=== PATIENT | male | born 1950 | race Caucasian/White ===

== ENCOUNTER 2019-02-16 16:34 | Emergency (ER) | payer MEDICARE, BC ==
[~2019-02-16] VITALS: Ht 170.2 cm; Wt 76.4 kg
[2019-02-16] MEDS ORDERED: LISI-1046 PO (16:45)
[2019-02-16] MEDS ORDERED: ASPI81TA85 PO (16:45)
[2019-02-16] MEDS ORDERED: MULTCAP PO (16:45)
[2019-02-16] MEDS ORDERED: LOPR1TAB6 PO (16:45)
[2019-02-16] MEDS ORDERED: FEXO180T58 PO (16:45)
[2019-02-16] MEDS ORDERED: ATOR40TA75 PO (16:45)
[2019-02-16] MEDS ORDERED: ACET-683 PO (16:45)
[2019-02-16] MEDS ORDERED: NS 1,000 ML IV ONE (19:30)
[2019-02-16 19:35] LABS: BASO # 0.1 10^3/uL (0.0-0.2); BASO % 0.6 % (0.0-1.0); EOS # 0.1 10^3/uL (0.0-0.50); EOS % 1.1 % (0.0-3.0); LYMPH # 1.8 10^3/uL (1.5-4.5); LYMPH % 17.5 % (24.0-44.0); MEAN CORPUSCULAR HEMOGLOBIN 32.4 pg (27.0-33.0); MEAN CORPUSCULAR HGB CONC 34.9 g/dl (32.0-36.5); MEAN CORPUSCULAR VOLUME 92.9 fl (80.0-96.0); MONO # 0.7 10^3/uL (0.0-0.8); MONO % 6.6 % (0.0-5.0); NEUTROPHILS # 7.5 10^3/uL (1.8-7.7); NEUTROPHILS % 73.7 % (36.0-66.0); PLATELET COUNT, AUTOMATED 120 10^3/uL (150-450); RED BLOOD COUNT 4.63 10^6/uL (4.30-6.10); WHITE BLOOD COUNT 10.1 10^3/uL (4.0-10.0)
[2019-02-16 19:52] LABS: BLOOD UREA NITROGEN 20 MG/DL (7-18); CALCIUM LEVEL 9.2 MG/DL (8.8-10.2); CARBON DIOXIDE LEVEL 29 MEQ/L (21-32); CHLORIDE LEVEL 106 MEQ/L (98-107); CK-MB VALUE MASS 1.9 NG/ML (<3.6); CPK CREATINE PHOSPHOKINASE 85 U/L (39-308); GLOMERULAR FILTRATION RATE > 60.0 (>49); GLUCOSE, FASTING 87 MG/DL (70-100); MB/CK RELATIVE INDEX 2.24 (< OR =4); POTASSIUM SERUM 4.5 MEQ/L (3.5-5.1); SODIUM LEVEL 140 MEQ/L (136-145); TROPONIN I < 0.02 NG/ML (< 0.10)
--- NOTE | 2019-02-16 20:08 | REP ---
HISTORY: Chest pain. COMPARISON: None. The technique utilized in obtaining the radiograph has magnified the cardiac silhouette and accentuated the interstitial markings. There has been previous median sternotomy. There is an intracardiac device secondary to aortic valvular replacement. The heart is not enlarged. The pleural angles are sharp. There is a small nodule in the left lower lung field, probably representing the patient's nipple shadow. The lung benítez are otherwise clear. The osseous structures are within normal limits. IMPRESSION: No evidence of acute cardiopulmonary disease, however, there is a nodule in the left lower lung field with no priors for comparison. Two PA views of the chest are recommended with nipple markers in place, one view with the patient's arms up and the other view with the patient's arms down. Electronically Signed by Greg Richardson DO 02/17/2019 12:20 P
--- NOTE | 2019-02-16 20:56 | ECGEPIP ---
[facility] - ED Test Date: 2019-02-16 Pat Name: MARCELLA NAVARRO IV Department: Room: - Gender: Male [employer]: KATE : 1950 Requested By: Alejandro Amin Order Number: [id number] Reading MD: Alejandro Frey Measurements Intervals [place] Rate: 53 P: 64 ME: 158 QRS: 50 QRSD: 113 T: 65 QT: 444 QTc: 419 Interpretive Statements SINUS BRADYCARDIA POSSIBLE LEFT ATRIAL ENLARGEMENT INCOMPLETE RIGHT BUNDLE BRANCH BLOCK NO PRIORS FOR COMPARISON Electronically Signed on 02-16-2019 20:56:28 EDT by Alejandro Frey
[2019-02-16 20:58] LABS: APPEARANCE, URINE HAZY (CLEAR); BACTERIA, URINE AUTO NEGATIVE (NEGATIVE); BILIRUBIN, URINE AUTO NEGATIVE (NEGATIVE); BLOOD, URINE BLOOD NEGATIVE (NEGATIVE); COLOR, URINE YELLOW (YELLOW); GLUCOSE, URINE (UA) AUTO NEGATIVE (NEGATIVE); KETONE, URINE AUTO NEGATIVE (NEGATIVE); LEUKOCYTE ESTERASE, URINE AUTO NEGATIVE (NEGATIVE); MUCUS, URINE SMALL (NEGATIVE); NITRITE, URINE AUTO NEGATIVE (NEGATIVE); PROTEIN, URINE AUTO NEGATIVE (NEGATIVE); RBC, URINE AUTO 2 /HPF (0-3); SPECIFIC GRAVITY URINE AUTO 1.019 (1.002-1.035); SQUAMOUS EPITHELIAL CELL UR AU 0 /HPF (0-6); UROBILINOGEN, URINE AUTO 0.2 mg/dL (0.0-2.0); WBC, URINE AUTO 5 /HPF (0-3)
--- NOTE | 2019-02-16 21:01 | ECGEPIP ---
[facility] - ED Test Date: 2019-02-16 Pat Name: MARCELLA NAVARRO IV Department: Room: - Gender: Male Coffee Host: JAZLYN : 1950 Requested By: MARGARETTE Best Order Number: [id number] Reading MD: Alejandro Frey Measurements Intervals [place] Rate: 61 P: 73 NE: 157 QRS: 61 QRSD: 106 T: 73 QT: 418 QTc: 424 Interpretive Statements SINUS RHYTHM POSSIBLE LEFT ATRIAL ENLARGEMENT INCOMPLETE RIGHT BUNDLE BRANCH BLOCK SIMILAR TO PRIOR ON SAME DATE Electronically Signed on 02-16-2019 21:01:31 EDT by Alejandro Frey
[2019-02-16 21:15] VITALS: BP 128/63
[2019-02-16 21:27] VITALS: O2SAT 99
== END 2019-02-16 22:10 | disposition home or self-care (01) ==
LOC: M ED 16:34
DX: E86.0 Dehydration (principal); R91.1 Solitary pulmonary nodule; I45.19 Other right bundle-branch block; R00.1 Bradycardia, unspecified; I25.10 Atherosclerotic heart disease of native coronary artery without angina pectoris; Z95.1 Presence of aortocoronary bypass graft; Z95.2 Presence of prosthetic heart valve; Z87.891 Personal history of nicotine dependence; Z79.82 Long term (current) use of aspirin; Z79.899 Other long term (current) drug therapy